=== PATIENT | male | born 1945 | race Caucasian/White ===

== ENCOUNTER → 2022-04-21 07:22 | Outpatient (CLI) | payer OTHER, SELFPAY ==
--- NOTE | 2022-04-21 | DI.RAD.S_ITS ---
PROCEDURE: XR LUMBAR SPINE 2-3V INDICATIONS: Sciatica, left side TECHNIQUE: 3 views of the lumbar spine were acquired. COMPARISON: None. FINDINGS: Bones: 5 [id number] vertebrae are present. There is normal bony alignment. No vertebral body compression fractures. No suspicious bony lesions. Multilevel degenerative disc space narrowing. Foraminal narrowing is most prominent L4-5 and L5-S1. Soft tissues: Overlying bowel gas pattern is normal. No suspicious soft tissue calcifications. IMPRESSION: Disc and foraminal narrowing most noted at L5-S1. Dictated by: Ileana Correia M.D. on 04/21/2022 at 12:19 Approved by: Ileana Correia M.D. on 04/21/2022 at 12:20
--- NOTE | 2022-04-21 | DI.RAD.S_ITS ---
PROCEDURE: XR KNEE LT 3V INDICATIONS: Sciatica, left side TECHNIQUE: 3 views of the knee were acquired. COMPARISON: None. FINDINGS: Bones: No fractures or dislocations. No suspicious bony lesions. Moderate tricompartmental arthritic change. Soft tissues: Mild joint effusion. No suspicious soft tissue calcifications. IMPRESSION: Mild effusion. No visualized acute fracture or dislocation. However, if clinical concern and/or pain persist, short interval imaging followup in 7-10 days is recommended, as occult injury cannot be definitively excluded. Dictated by: Ileana Correia M.D. on 04/21/2022 at 11:58 Approved by: Ileana Correia M.D. on 04/21/2022 at 12:19
== END ==
PROVIDERS: PCP Family Medicine; Referring Provider Family Medicine; Visit Provider Family Medicine
DX: M54.32 Sciatica, left side (principal); M25.462 Effusion, left knee; M48.07 Spinal stenosis, lumbosacral region
CPT/HCPCS: 72100; 73562